=== PATIENT | female | born 1990 | race Caucasian/White ===

== ENCOUNTER 2021-07-13 14:14 | Emergency (ER) | payer OTHER, MEDICAID ==
[~2021-07-13] VITALS: Ht 160 cm; Wt 86.2 kg
[2021-07-13 15:01] LABS: INFLUENZA A ANTIGEN Negative (Negative); INFLUENZA B ANTIGEN Negative (Negative)
[2021-07-13] MEDS ORDERED: TESSALON PERLE100 MG PO (15:07)
[2021-07-13] MEDS ORDERED: PROAIR HFA8.5 GM INH (15:07)
[2021-07-13] MEDS ORDERED: ZPAK PO (15:07)
[2021-07-13] MEDS ORDERED: MEDROLDOSEPACK PO (15:07)
[2021-07-13 15:21] VITALS: BP 125/70
--- NOTE | 2021-07-14 11:08 | EKG ---
[place] [address] ELECTROCARDIOGRAM REPORT Name: SUJATHA TRIPATHI Room: [facility]#: [id number] Admission: 07/13/21 Attend Phys: Discharge: 07/13/21 Date of : 89 Date of Service: 07/13/21 1431 Report #: [id number] THIS REPORT FOR: //name// [facility] ED Test Date: 2021-07-13 Test Time: 14:31:19 Pat Name: SUJATHA TRIPATHI Department: Room: Gender: Extended Insurance Clerk: : 1990 Requested By: Margareth Grijalva Order Number: [id number] MD: Jarrod Patino Measurements Intervals [place] Rate: 97 P: 69 UT: 133 QRS: 31 QRSD: 85 T: 13 QT: 340 QTc: 432 Interpretive Statements Sinus rhythm No previous ECG available for comparison Electronically Signed On 07-14-2021 11:08:04 PROGRAM MANAGEMENT ANALYST by Jarrod Patino [email or web address] <ELECTRONICALLY SIGNED> By: Jarrod Patino MD, [facility] 07/14/21 1108 143 143 Jarrod Patino MD, FACC /EPI
== END 2021-07-13 15:22 | disposition home or self-care (01) ==
LOC: M.ERS 14:14
PROVIDERS: Physician Assistant
DX: J18.9 Pneumonia, unspecified organism (principal); Z20.822 Contact with and (suspected) exposure to COVID-19; M54.9 Dorsalgia, unspecified; F17.210 Nicotine dependence, cigarettes, uncomplicated; Z88.6 Allergy status to analgesic agent